=== PATIENT | female | born 1995 | race Two or more races ===

== ENCOUNTER 2024-05-11 10:45 | Outpatient (CLI) | payer OTHER | END 2024-05-11 10:46 | disposition home or self-care (01) | LOC: PRENATAL 10:45 | PROVIDERS: ATTEND Obstetrics & Gynecology Maternal & Fetal Medicine | DX: O35.3XX0 Maternal care for (suspected) damage to fetus from viral disease in mother, not applicable or unspecified (principal); O44.00 Complete placenta previa NOS or without hemorrhage, unspecified trimester; Z3A.20 20 weeks gestation of pregnancy ==

== ENCOUNTER 2024-07-24 14:45 | Outpatient (CLI) | payer OTHER | END 2024-07-24 14:46 | disposition home or self-care (01) | LOC: PRENATAL 14:45 | PROVIDERS: ATTEND Obstetrics & Gynecology Maternal & Fetal Medicine | DX: O26.849 Uterine size-date discrepancy, unspecified trimester (principal); O36.8199 Decreased fetal movements, unspecified trimester, other fetus; Z3A.30 30 weeks gestation of pregnancy ==

== ENCOUNTER 2024-08-28 13:50 | Outpatient (CLI) | payer OTHER | END 2024-08-28 13:51 | disposition home or self-care (01) | LOC: PRENATAL 13:50 | PROVIDERS: ATTEND Obstetrics & Gynecology Maternal & Fetal Medicine | DX: O26.849 Uterine size-date discrepancy, unspecified trimester (principal); O36.8199 Decreased fetal movements, unspecified trimester, other fetus; O24.419 Gestational diabetes mellitus in pregnancy, unspecified control; Z3A.35 35 weeks gestation of pregnancy ==

== ENCOUNTER 2024-09-14 13:15 | Inpatient (IN) | payer OTHER ==
[~2024-09-14] VITALS: Ht 152.4 cm; Wt 2.7 kg
[2024-09-17 07:49] VITALS: BP 124/77
[2024-09-17 08:00] VITALS: BP 124/77
[2024-09-17] MEDS ORDERED: PRENATAL + DHA1 EAC1 PO (09:25)
[2024-09-17] MEDS ORDERED: RINGERS SOLUTION,LACTATED 1,000 ML IV SCH (09:30)
[2024-09-17 09:34] LABS: HEMATOCRIT 36.4 % (36.0-45.00); HEMOGLOBIN 11.8 g/dL (12.0-15.00); MEAN CORPUSCULAR HGB CONC 32.5 g/dl (32.0-36.0); PLATELET COUNT 184 K/uL (150-450); RED BLOOD COUNT 4.24 M/uL (4.00-6.00); RED CELL DISTRIBUTION WIDTH 14.2 % (11.5-14.5)
[2024-09-17 09:40] LABS: PH,URINE 5.5 (5.0-8.0); URINE APPEARANCE Clear; URINE BILIRRUBIN Negative (NEGATIVE); URINE BLOOD Negative; URINE COLOR Yellow; URINE GLUCOSE Negative (NEGATIVE); URINE KETONE Negative (NEGATIVE); URINE LEUKOCYTE Moderate; URINE NITRATE Negative; URINE PROTEIN Negative (NEGATIVE); URINE UROBILINOGEN 0.2 E.U./dl
[2024-09-17 09:44] LABS: URINE BACTERIA 1292.4 uL (0.0-1933); URINE EPITHELIAL CELLS 85.3 uL (0.0-38.8); URINE RBC 9.5 uL (0.0-20.8); URINE WBC 63.9 uL (0.0-23.2)
[2024-09-17] MEDS ORDERED: OXYTOCIN 500 ML IV SCH (10:00)
[2024-09-17 10:08] LABS: INR 0.94; PARTIAL THROMBOPLASTIN TIME 28.8 SECONDS (22.0-34.0); PROTHROMBIN TIME 10.3 SECONDS (9.0-11.5)
[2024-09-17 10:14] LABS: URINE CAST 0.73 uL (0.0-1.40)
[2024-09-17 10:31] LABS: ALBUMIN 2.6 gm/dL (3.4-5.0); BILIRUBIN TOTAL 0.43 mg/dL (0.3-1.2); CREATININE SERUM 0.49 mg/dL (0.55-1.02); GFR 150.38; GLOBULINA 3.4 G/DL (2.4-3.5); POTASSIUM 4.06 mEq/L (3.5-5.1)
[2024-09-17 11:51] VITALS: BP 114/63
[2024-09-17 15:41] VITALS: BP 140/63
[2024-09-17] MEDS ORDERED: CEFAZOLIN SODIUM 1,000 MG VIAL IV SCH (16:45)
[2024-09-17] MEDS ORDERED: CEFAZOLIN SODIUM 1,000 MG VIAL ONE (16:48)
[2024-09-17] MEDS ORDERED: ERYTHROMYCIN BASE OPHT 1GM EACH TUBE OP ONE (16:56)
[2024-09-17] MEDS ORDERED: OXYTOCIN 10 UNITS/ML VIAL ONE ×2 (16:56→21:58)
[2024-09-17] MEDS ORDERED: ONDANSETRON HCL 2 MG/ML VIAL IV PRN (18:15)
[2024-09-17] MEDS ORDERED: MORPHINE SULFATE 4 MG/ML CARTRIDGE IV PRN (18:15)
[2024-09-17] MEDS ORDERED: OXYTOCIN 1,000 ML IV SCH (18:15)
[2024-09-17] MEDS ORDERED: MORPHINE SULFATE 4 MG/ML VIAL IV ONE ×2 (20:30→21:55)
[2024-09-17] MEDS ORDERED: SIMETHICONE 125 MG CAPSULE PO SCH (21:00)
[2024-09-17 22:33] VITALS: BP 124/77
[2024-09-17 23:14] LABS: HEMATOCRIT 34.1 % (36.0-45.00); HEMOGLOBIN 11.3 g/dL (12.0-15.00); MEAN CELL VOLUME 85.3 fL (80.00-100.00); MEAN CORPUSCULAR HEMOGLOBIN 28.4 pg (27.00-32.0); MEAN CORPUSCULAR HGB CONC 33.2 g/dl (32.0-36.0); PLATELET COUNT 179 K/uL (150-450); RED CELL DISTRIBUTION WIDTH 14.7 % (11.5-14.5)
[2024-09-18 04:30] VITALS: BP 117/75
[2024-09-18 08:22] VITALS: BP 113/51
[2024-09-18] MEDS ORDERED: ACETAMINOPHEN WITH CODEINE 1 UDTAB TABLET PO PRN (09:00)
[2024-09-18] MEDS ORDERED: DOCUSATE SODIUM 100MG CAP PO SCH (09:00)
[2024-09-18] MEDS ORDERED: NAPROXEN 500 MG TABLET PO PRN (09:00)
[2024-09-18 17:38] VITALS: BP 118/84
[2024-09-18 21:46] VITALS: BP 109/69
[2024-09-19 00:09] VITALS: BP 117/80
[2024-09-19 08:00] VITALS: BP 108/69
[2024-09-19 16:00] VITALS: BP 100/66
[2024-09-20 00:36] VITALS: BP 104/67
[2024-09-20 05:04] VITALS: BP 103/68
[2024-09-20 08:00] VITALS: BP 99/57
[2024-09-20] MEDS ORDERED: NAPR500T14 PO (08:17)
[2024-09-20] MEDS ORDERED: COLACE100 MG PO (08:17)
[2024-09-20] MEDS ORDERED: ACETAMINOPHEN-1 EAC2 PO (08:17)
== END 2024-09-20 16:08 | disposition home or self-care (01) | DRG 788 ==
LOC: LDR 09-17 06:11 → OB/GYN 09-17 19:41
PROVIDERS: Obstetrics & Gynecology; ADMIT Obstetrics & Gynecology; ATTEND Obstetrics & Gynecology
PROC: 4A1HXCZ Monitoring of Products of Conception, Cardiac Rate, External Approach (ICD-10-PCS; 2024-09-17)
PROC: 10D00Z1 Extraction of Products of Conception, Low, Open Approach (ICD-10-PCS; principal; 2024-09-17 16:00)
DX: O36.8330 Maternal care for abnormalities of the fetal heart rate or rhythm, third trimester, not applicable or unspecified (principal); Z3A.38 38 weeks gestation of pregnancy; Z37.0 Single live birth